=== PATIENT | male | born 1970 | race Caucasian/White ===

== ENCOUNTER 2018-02-13 11:51 | Day surgery (SDC) | payer OTHER ==
[~2018-02-13] VITALS: Ht 180.3 cm; Wt 78.0 kg
[~2018-02-13 11:51] MED LIST: ACET325 PO; KETO10 PO; LEVO750 PO; Multivitamin1 EAC1 PO; Norco 5-325 Ta1 EACH PO; ONDA4ODT MM
--- NOTE | 2018-02-13 14:44 | NUR ---
02/13/18 1444 Felton Alba 1ST IV ATTEMPT IN LH UNSUCCESSFUL, ORSC.BDK 2ND IV ATTEMPT IN LFA UNSUCCESSFUL, ORSC.BDK 3RD IV ATTEMPT IN LAC SUCCESSFUL, ORSC.ZUHAIR
--- NOTE | 2018-02-13 15:06 | NUR ---
02/13/18 1506 Meseret Rothman PATIENT ROLLING AROUND IN BED AND MOANING. DR CONTRERAS STILL AT BEDSIDE AND ASKS ME TO GET FENTANYL AND GIVE 25MCG. PATIENT UNABLE TO RATE PAIN BEFORE THIS IS GIVEN, JUST ROLLING BACK AND FORTH AND MOANING
--- NOTE | 2018-02-13 15:22 | NUR ---
02/13/18 1522 Meseret Rothman PATIENT IS ABLE TO TRANSFER TO CHAIR WITH MINIMAL ASSISTANCE. PATIENT STILL NOT WILLING TO TALK. I ASK ABOUT PAIN AND HE SHAKES HIS HEAD YES. I ASK HIM TO PLEASE TALK TO ME AND ANSWER MY QUESTIONS WITH WORDS. THEN WHEN HE IS ASKED HE STATES HE IS HURTING BUT WHEN I ASK HIM TO RATE HIS PAIN HE STATES HE IS UNABLE TO DO SO. ANOTHER DOSE OF FENTANYL IS GIVEN PER MD ORDERS
== END 2018-02-13 17:05 | disposition home or self-care (01) ==
LOC: ORSCSDS 11:51
PROVIDERS: Surgery
PROC: BF031ZZ Plain Radiography of Gallbladder and Bile Ducts using Low Osmolar Contrast (ICD-10-PCS; principal; 2018-02-13 13:00)
PROC: 0FT44ZZ Resection of Gallbladder, Percutaneous Endoscopic Approach (ICD-10-PCS; principal; 2018-02-13 13:00)
DX: K80.10 Calculus of gallbladder with chronic cholecystitis without obstruction (principal)
CPT/HCPCS: 74300; 88304; C1729; J0690; J1100; J1885; J2250; J2405; J2710; J2765; J3010; J7120